=== PATIENT | female | born 1960 | race Caucasian/White ===

== ENCOUNTER → 2022-07-25 14:02 | Outpatient (BNVA) | payer OTHER, SELFPAY | PROVIDERS: PCP Family Medicine; Visit Provider Internal Medicine | DX: M45.9 Ankylosing spondylitis of unspecified sites in spine (principal); L40.9 Psoriasis, unspecified; M25.50 Pain in unspecified joint | CPT/HCPCS: 36415; 72040; 72100; 72202; 73120; 80053; 82550; 82784; 83516; 85025; 85651; 86140; 86160; 86162; 86200; 86235; 86255; 86376; 86431; 86480; 86704; 86803; 87340 ==